=== PATIENT | male | born 2000 | race Caucasian/White ===

== ENCOUNTER 2020-03-14 13:35 | Emergency (ER) | payer OTHER ==
[~2020-03-14] VITALS: Ht 175.3 cm; Wt 73.1 kg
[2020-03-14 13:53] VITALS: BP 113/64
[2020-03-14] MEDS ORDERED: LIDOCAINE-MPF 1%, 5ML INFIL ONE (14:00)
--- NOTE | 2020-03-14 15:39 | NUR ---
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 AXEL
[2020-03-14] MEDS ORDERED: LIDOCAINE-MPF 1%, 5ML ONE (15:48)
--- NOTE | 2020-03-14 16:22 | NUR ---
SUTURE SET UP.
== END 2020-03-14 17:00 | disposition home or self-care (01) ==
LOC: ED 14:53
DX: S61.210A Laceration without foreign body of right index finger without damage to nail, initial encounter (principal); W45.8XXA Other foreign body or object entering through skin, initial encounter; Y93.89 Activity, other specified; Y92.89 Other specified places as the place of occurrence of the external cause; Y99.8 Other external cause status
CPT/HCPCS: 12041; 99284